=== PATIENT | female | born 1985 | race Caucasian/White ===

== ENCOUNTER → 2017-01-01 | Outpatient (REF) | payer OTHER | LOC: M SFHCWAGY 15:04 | PROVIDERS: ATTEND Nurse Practitioner Women's Health | DX: Z12.4 Encounter for screening for malignant neoplasm of cervix (principal) ==

== ENCOUNTER → 2017-11-19 | Outpatient (CLI) | payer OTHER ==
[2017-11-19 13:09] LABS: BASO # 0.1 10^3/uL (0.0-0.2); BASO % 0.7 % (0.0-1.0); EOS # 0.1 10^3/uL (0.0-0.50); EOS % 1.6 % (0.0-3.0); IMMATURE GRANULOCYTE % 0.2 % (0-0); LYMPH # 1.2 10^3/uL (1.5-4.5); LYMPH % 14.8 % (24.0-44.0); MEAN CORPUSCULAR HEMOGLOBIN 29.8 pg (27.0-33.0); MEAN CORPUSCULAR HGB CONC 34.1 g/dl (32.0-36.5); MEAN CORPUSCULAR VOLUME 87.2 fl (80.0-96.0); MONO # 0.7 10^3/uL (0.0-0.8); MONO % 8.1 % (0.0-5.0); NEUTROPHILS % 74.6 % (36.0-66.0); PLATELET COUNT, AUTOMATED 228 10^3/uL (150-450); RED CELL DISTRIBUTION WIDTH 12.3 % (11.5-14.5)
[2017-11-19 14:41] LABS: HBsAg Prenatal NEGATIVE (NEGATIVE)
== END ==
LOC: M ADAMS 08:00
DX: Z34.81 Encounter for supervision of other normal pregnancy, first trimester (principal); Z3A.13 13 weeks gestation of pregnancy
CPT/HCPCS: 86762

== ENCOUNTER → 2017-12-09 | Outpatient (CLI) | payer OTHER | LOC: M SMT 15:27 | DX: Z13.79 Encounter for other screening for genetic and chromosomal anomalies (principal) | CPT/HCPCS: 36415 ==

== ENCOUNTER → 2017-12-11 | Outpatient (CLI) | payer OTHER | LOC: M SMT 14:56 | DX: Z34.82 Encounter for supervision of other normal pregnancy, second trimester (principal); Z3A.18 18 weeks gestation of pregnancy ==

== ENCOUNTER → 2018-01-05 | Outpatient (CLI) | payer OTHER | LOC: M SMT 14:41 | DX: Z36.89 Encounter for other specified antenatal screening (principal); Z3A.20 20 weeks gestation of pregnancy | CPT/HCPCS: 76816 ==

== ENCOUNTER → 2018-02-09 | Outpatient (CLI) | payer OTHER ==
[2018-02-09 18:36] LABS: BASO # 0.1 10^3/uL (0.0-0.2); BASO % 0.7 % (0.0-1.0); EOS # 0.2 10^3/uL (0.0-0.50); HEMATOCRIT 34.2 % (36.0-47.0); HEMOGLOBIN 11.7 g/dl (12.0-16.0); IMMATURE GRANULOCYTE % 0.5 % (0-3.0); LYMPH # 2.3 10^3/uL (1.5-4.5); LYMPH % 19.7 % (24.0-44.0); MEAN CORPUSCULAR HEMOGLOBIN 29.6 pg (27.0-33.0); MEAN CORPUSCULAR HGB CONC 34.2 g/dl (32.0-36.5); MEAN CORPUSCULAR VOLUME 86.6 fl (80.0-96.0); MONO % 8.7 % (0.0-5.0); NEUTROPHILS # 7.8 10^3/uL (1.8-7.7); NEUTROPHILS % 68.4 % (36.0-66.0); PLATELET COUNT, AUTOMATED 333 10^3/uL (150-450); RED BLOOD COUNT 3.95 10^6/uL (4.00-5.40); RED CELL DISTRIBUTION WIDTH 12.4 % (11.5-14.5)
[2018-02-10 08:20] LABS: WHITE BLOOD COUNT 11.4 10^3/uL (4.0-10.0)
[2018-02-10 08:21] LABS: GLUCOSE CHALLENGE TEST 1 HOUR 87 MG/DL (LESS THAN 140)
[2018-02-10 08:49] LABS: TYPE AND SCREEN 1 1
== END ==
LOC: M LAB 15:44
DX: Z34.82 Encounter for supervision of other normal pregnancy, second trimester (principal)

== ENCOUNTER 2018-02-12 02:09 | Inpatient (IN) | payer OTHER ==
[2018-02-12] MEDS ORDERED: RHOGAM 300 MCG (1500 IU) INJ (J2790) IM (02:15)
[2018-02-12] MEDS: miSOPROStol 50 MCG 1/2 TAB (S0191) SL ×2 (03:06→07:06)
[2018-02-12] MEDS: zolPIDEM TARTRATE 5 MG TAB PO (03:06)
[2018-02-12 03:12] LABS: BASO # 0.1 10^3/uL (0.0-0.2); BASO % 0.9 % (0.0-1.0); EOS # 0.3 10^3/uL (0.0-0.50); EOS % 3.5 % (0.0-3.0); HEMATOCRIT 34.4 % (36.0-47.0); HEMOGLOBIN 11.7 g/dl (12.0-16.0); IMMATURE GRANULOCYTE % 0.4 % (0-3.0); LYMPH # 2.2 10^3/uL (1.5-4.5); LYMPH % 22.7 % (24.0-44.0); MEAN CORPUSCULAR HEMOGLOBIN 29.6 pg (27.0-33.0); MEAN CORPUSCULAR VOLUME 87.1 fl (80.0-96.0); MONO # 0.7 10^3/uL (0.0-0.8); MONO % 7.1 % (0.0-5.0); NEUTROPHILS # 6.4 10^3/uL (1.8-7.7); NEUTROPHILS % 65.4 % (36.0-66.0); PLATELET COUNT, AUTOMATED 325 10^3/uL (150-450); RED BLOOD COUNT 3.95 10^6/uL (4.00-5.40); RED CELL DISTRIBUTION WIDTH 12.3 % (11.5-14.5); WHITE BLOOD COUNT 9.8 10^3/uL (4.0-10.0)
[2018-02-12 03:22] LABS: PROTHROMBIN TIME 12.2 SECONDS (12.4-14.5)
[2018-02-12 03:23] LABS: PARTIAL THROMBOPLASTIN TIME 37.4 SECONDS (26.8-37.9)
[2018-02-12 03:42] LABS: THYROXINE (T4) 11.6 UG/DL (4.5-12.0)
[2018-02-12] MEDS: FAMOTIDINE 20 MG TAB PO (07:58)
[2018-02-12] MEDS ORDERED: miSOPROStol 50 MCG 1/2 TAB (S0191) PV ×2 (10:30→14:30)
[2018-02-12] MEDS: miSOPROStol 100 MCG TAB (S0191) PV (11:09)
[2018-02-12] MEDS: miSOPROStol 200 MCG TAB (S0191) PV (14:48)
[2018-02-12] MEDS ORDERED: miSOPROStol 200 MCG TAB (S0191) PV (18:45)
[2018-02-12] MEDS: miSOPROStol 200 MCG TAB (S0191) SL ×2 (18:54→23:34)
[2018-02-12] MEDS: PROMETHAZINE INJ 25 MG/ML VIAL (J2550) IV (19:55)
[2018-02-12] MEDS: BUTORPHANOL 2 MG/ML INJ (J0595) IV (19:57)
[2018-02-13] MEDS: LR 1,000 ML IV (04:12)
[2018-02-13] MEDS: OXYTOCIN DRIP 30 UNITS in APPROPRIATE DILUENT 1 EA IV ×2 (04:12→13:40)
[2018-02-13] MEDS: LORazepam 1 MG TAB PO (04:31)
[2018-02-13] MEDS ORDERED: FENTANYL 2MCG/ML ROPIVACAINE 0.2% IN 0.9% NACL 200ML IVBAG As Ordered (07:24)
[2018-02-13 07:27] LABS: HEMATOCRIT 32.6 % (36.0-47.0); HEMOGLOBIN 11.4 g/dl (12.0-16.0); MEAN CORPUSCULAR HEMOGLOBIN 30.2 pg (27.0-33.0); MEAN CORPUSCULAR VOLUME 86.5 fl (80.0-96.0); PLATELET COUNT, AUTOMATED 282 10^3/uL (150-450); RED BLOOD COUNT 3.77 10^6/uL (4.00-5.40); RED CELL DISTRIBUTION WIDTH 12.3 % (11.5-14.5); WHITE BLOOD COUNT 16.5 10^3/uL (4.0-10.0)
[2018-02-13] MEDS ORDERED: ONDANSETRON 4MG/2ML VIAL (J2405) IV (08:30)
[2018-02-13] MEDS ORDERED: EPIDURAL COMMENT XX (08:30)
[2018-02-13] MEDS ORDERED: EPIDURAL/PCA KEYS XX (08:30)
[2018-02-13] MEDS ORDERED: NALOXONE INJ 0.4 MG/1 ML VIAL (J2310) IV (08:30)
[2018-02-13] MEDS ORDERED: FENTANYL/ROPIVACAINE/NACL BAG 200 ML EPIDURAL (08:30)
[2018-02-13] MEDS ORDERED: LACTATED RINGER'S 1000 ML IV (08:30)
[2018-02-13] MEDS ORDERED: ePHEDrine SULFATE 25 MG/5 ML(5MG/ML) SYRINGE IV (08:30)
[2018-02-13] MEDS ORDERED: diphenhydrAMINE INJ 50MG/ML VIAL (J1200) IV (08:30)
[2018-02-13] MEDS ORDERED: REFRIGERATOR IV KEYS XX (08:30)
[2018-02-13] MEDS ORDERED: DIBUCAINE 1% OINTMENT 30GM TOP (13:30)
[2018-02-13] MEDS ORDERED: DOCUSATE SODIUM 100 MG CAP PO (13:30)
[2018-02-13] MEDS ORDERED: IBUPROFEN 800 MG TAB PO (13:30)
[2018-02-13] MEDS ORDERED: MEASLES,MUMPS,RUBELLA VACCINE INJ (MMR-II) (90707) SC (13:30)
[2018-02-13] MEDS ORDERED: ANUSOL HC CREAM 30GM TOP (13:30)
[2018-02-13] MEDS ORDERED: METHYLERGONOVINE MALEATE 0.2 MG TAB PO (13:30)
[2018-02-13] MEDS ORDERED: MOM 30ML SUSPENSION UDC PO (13:30)
[2018-02-13 15:47] LABS: FETAL SCREEN PROF. 1 1
[2018-02-13] MEDS: RHOGAM 300 MCG (1500 IU) INJ (J2790) IM (16:10)
[2018-02-13] MEDS: ACETAMINOPHEN 500 MG TAB PO (18:27)
[2018-02-14 08:06] LABS: ANTI PARVO VIRUS LEVEL IGG 0.2 index (0.0-0.8); ANTI PARVO VIRUS LEVEL IgM 0.2 index (0.0-0.8); BETA-2 GLYCOPROTEIN I ABY IGA <9 (0-25); BETA-2 GLYCOPROTEIN I ABY IGG <9 (0-20); BETA-2 GLYCOPROTEIN I ABY IGM 13 (0-32); CARDIOLIPIN IGA ANTIBODY <9 APL U/mL (0-11); CARDIOLIPIN IGG ANTIBODY <9 GPL U/mL (0-14); CARDIOLIPIN IGM ANTIBODY 47 MPL U/mL (0-12)
[2018-02-14] MEDS ORDERED: PRENATAL VITAMINS CHEWABLE TABLET PO (09:00)
== END 2018-02-13 19:10 | disposition home or self-care (01) | DRG 775 ==
LOC: M LDI 02:09
PROC: 3E033VJ Introduction of Other Hormone into Peripheral Vein, Percutaneous Approach (ICD-10-PCS; 2018-02-12)
PROC: 10E0XZZ Delivery of Products of Conception, External Approach (ICD-10-PCS; principal; 2018-02-13)
DX: O36.4XX0 Maternal care for intrauterine death, not applicable or unspecified (principal); Z3A.27 27 weeks gestation of pregnancy; Z37.1 Single stillbirth

== ENCOUNTER → 2018-03-27 | Outpatient (REF) | payer OTHER ==
[2018-03-31 09:03] LABS: DRVV SCREEN 41.1 SEC
[2018-04-02 00:07] LABS: ANTI DOUBLE STRAND-DNA AB 1 IU/mL (0-9); ANTI THROMBIN 3 ANTIGEN IMMUNO 124 % (72-124); ANTI THROMBIN 3 FUNCT ACTIVITY 106 % (75-135); CARDIOLIPIN IGA ANTIBODY <9 APL U/mL (0-11); CARDIOLIPIN IGG ANTIBODY <9 GPL U/mL (0-14); CARDIOLIPIN IGM ANTIBODY 34 MPL U/mL (0-12); HOMOCYST(E)INE SERUM 10.4 umol/L (0.0-15.0); PROTEIN C ANTIGEN 105 % (60-150); PROTEIN C FUNCTIONAL ACTIVITY 157 % (73-180); PROTEIN S FUNCTIONAL ACTIVITY 54 % (63-140); SSA SJOGRENS A <0.2 AI (0.0-0.9); SSB SJOGRENS B <0.2 AI (0.0-0.9)
== END ==
LOC: M LABDRWAD 19:20
DX: Z37.1 Single stillbirth (principal)

== ENCOUNTER → 2018-06-30 | Outpatient (REF) | payer OTHER ==
[2018-07-03 14:49] LABS: ANTI DOUBLE STRAND-DNA AB 1 IU/mL (0-9); ANTI THROMBIN 3 ANTIGEN IMMUNO 124 % (72-124); ANTI THROMBIN 3 FUNCT ACTIVITY 104 % (75-135); CARDIOLIPIN IGA ANTIBODY <9 APL U/mL (0-11); CARDIOLIPIN IGG ANTIBODY <9 GPL U/mL (0-14); CARDIOLIPIN IGM ANTIBODY 27 MPL U/mL (0-12); PROTEIN C FUNCTIONAL ACTIVITY 165 % (73-180); PROTEIN S FUNCTIONAL ACTIVITY 64 % (63-140); SSA SJOGRENS A <0.2 AI (0.0-0.9); SSB SJOGRENS B <0.2 AI (0.0-0.9)
[2018-07-10 14:40] LABS: DRVV SCREEN 54.3 SEC
[2018-07-10 14:43] LABS: HEXAGONAL PHASE PHOSPHOLIPID SEE SEPARATE REPORT
== END ==
LOC: M LAB REF 19:43
DX: O36.4XX0 Maternal care for intrauterine death, not applicable or unspecified (principal); Z3A.00 Weeks of gestation of pregnancy not specified
CPT/HCPCS: 86147

== ENCOUNTER → 2018-09-02 | Outpatient (REF) | payer OTHER ==
[2018-09-02 17:26] LABS: BASO # 0.1 10^3/uL (0.0-0.2); BASO % 0.6 % (0.0-1.0); EOS # 0.1 10^3/uL (0.0-0.50); EOS % 1.4 % (0.0-3.0); HEMATOCRIT 39.1 % (36.0-47.0); IMMATURE GRANULOCYTE % 0.4 % (0-3.0); LYMPH # 2.1 10^3/uL (1.5-4.5); LYMPH % 22.2 % (24.0-44.0); MEAN CORPUSCULAR HEMOGLOBIN 29.6 pg (27.0-33.0); MEAN CORPUSCULAR HGB CONC 33.2 g/dl (32.0-36.5); MEAN CORPUSCULAR VOLUME 89.1 fl (80.0-96.0); MONO # 0.7 10^3/uL (0.0-0.8); NEUTROPHILS # 6.6 10^3/uL (1.8-7.7); NEUTROPHILS % 68.4 % (36.0-66.0); PLATELET COUNT, AUTOMATED 329 10^3/uL (150-450); RED BLOOD COUNT 4.39 10^6/uL (4.00-5.40); RED CELL DISTRIBUTION WIDTH 12.4 % (11.5-14.5); WHITE BLOOD COUNT 9.6 10^3/uL (4.0-10.0)
[2018-09-02 17:29] LABS: ALBUMIN 4.1 GM/DL (3.2-5.2); ALBUMIN/GLOBULIN RATIO 1.32 (1.00-1.93); ALKALINE PHOSPHATASE 89 U/L (45-117); ALT/SGPT 21 U/L (12-78); ANION GAP 7 MEQ/L (8-16); APPEARANCE, URINE HAZY (CLEAR); AST/SGOT 14 U/L (7-37); BACTERIA, URINE AUTO 2+ (NEGATIVE); BILIRUBIN, URINE AUTO NEGATIVE (NEGATIVE); BILIRUBIN,TOTAL 0.5 MG/DL (0.2-1.0); BLOOD UREA NITROGEN 12 MG/DL (7-18); BLOOD, URINE BLOOD NEGATIVE (NEGATIVE); C REACTIVE PROTEIN QUANTITATIV 1.04 MG/DL (0.00-0.30); CALCIUM LEVEL 9.5 MG/DL (8.5-10.1); CARBON DIOXIDE LEVEL 28 MEQ/L (21-32); CHLORIDE LEVEL 103 MEQ/L (98-107); COLOR, URINE STRAW (YELLOW); COMPLEMENT C3 126 MG/DL (90-180); CREATININE FOR GFR 0.73 MG/DL (0.55-1.30); GLOMERULAR FILTRATION RATE > 60.0 (>60); GLUCOSE, FASTING 74 MG/DL (70-100); GLUCOSE, URINE (UA) AUTO NEGATIVE (NEGATIVE); KETONE, URINE AUTO NEGATIVE (NEGATIVE); LEUKOCYTE ESTERASE, URINE AUTO 1+ (NEGATIVE); NITRITE, URINE AUTO NEGATIVE (NEGATIVE); POTASSIUM SERUM 4.1 MEQ/L (3.5-5.1); PROTEIN, URINE AUTO NEGATIVE (NEGATIVE); RBC, URINE AUTO 1 /HPF (0-3); SODIUM LEVEL 138 MEQ/L (136-145); SPECIFIC GRAVITY URINE AUTO 1.004 (1.002-1.035); SQUAMOUS EPITHELIAL CELL UR AU 2 /HPF (0-6); TOTAL PROTEIN 7.2 GM/DL (6.4-8.2); UROBILINOGEN, URINE AUTO 0.2 mg/dL (0.0-2.0); WBC, URINE AUTO 3 /HPF (0-3)
[2018-09-02 18:09] LABS: ERYTHROCYTE SEDIMENTATION RATE 24 mm/hr (0-20)
[2018-09-02 18:53] LABS: CREATININE,RANDOM URINE 31.2 MG/DL; TOTAL PROTEIN,RANDOM URINE < 5.0 MG/DL (0.0-12.0)
[2018-09-07 00:07] LABS: ANA (HEP2) Negative (.); ANTI DOUBLE STRAND-DNA AB 1 IU/mL (0-9); BETA-2 GLYCOPROTEIN I ABY IGA <9 (0-25); BETA-2 GLYCOPROTEIN I ABY IGG <9 (0-20); BETA-2 GLYCOPROTEIN I ABY IGM 14 (0-32); CARDIOLIPIN IGA ANTIBODY <9 APL U/mL (0-11); CARDIOLIPIN IGG ANTIBODY <9 GPL U/mL (0-14); CARDIOLIPIN IGM ANTIBODY 43 MPL U/mL (0-12); RNP ANTIBODY < 0.2 AI (0.0-0.9); SMITHS ANTIBODY < 0.2 AI (0.0-0.9); SSA SJOGRENS A <0.2 AI (0.0-0.9); SSB SJOGRENS B <0.2 AI (0.0-0.9)
[2018-09-08 10:26] LABS: DRVV SCREEN 47.7 SEC
[2018-09-08 10:32] LABS: PTT LUPUS TYPE ANTICOAG SCREEN 1.1 (0-1.2)
== END ==
LOC: M SFHCLERA 11:59
DX: R76.0 Raised antibody titer (principal)
CPT/HCPCS: 80053

== ENCOUNTER → 2018-10-30 | Outpatient (CLI) | payer OTHER ==
[2018-10-30 20:01] LABS: FERRITIN 51 NG/ML (8-252); FREE T4 0.93 NG/DL (0.76-1.46); IRON (FE) 56 UG/DL (50-170); PERCENT SATURATION 18.9 % (13.2-45.0); TOTAL IRON BINDING CAPACITY 296 UG/DL (250-450)
== END ==
LOC: M ADAMS 16:43
DX: R53.83 Other fatigue (principal)
CPT/HCPCS: 83550

== ENCOUNTER → 2018-11-30 | Outpatient (REF) | payer OTHER ==
[~2018-11-30] MED LIST: CLAR10CA3 PO; RANI75TA15 PO
[2018-12-02 14:37] LABS: HPV HYBRID CAPTURE II Negative (Negative)
== END ==
LOC: M SFHCWAGY 13:40
PROVIDERS: ATTEND Nurse Practitioner Women's Health
DX: N93.0 Postcoital and contact bleeding (principal); Z12.4 Encounter for screening for malignant neoplasm of cervix
CPT/HCPCS: 87624; G0123

== ENCOUNTER → 2018-12-01 | Outpatient (CLI) | payer OTHER ==
--- NOTE | 2018-12-02 05:33 | REP ---
Clinical: Postcoital bleeding . Technique: Transabdominal pelvic ultrasound followed by transvaginal examination for better evaluation of the endometrium and adnexa. Findings: Bladder is unremarkable and measures 15.6 x 8.9 x 11.3 cm . Normal anteverted uterus measures 7.4 x 2.8 x 6.0 cm . The endometrial complex measures 10.9 mm thickness. 5 mm endometrial polyp cannot definitively be excluded. Small subcentimeter Nabothian cysts noted. Bilateral ovaries are normal in appearance. Right ovary measures 3.7 x 2.8 x 3.9 cm ; Left ovary measures 4.1 x 1.7 x 2.8 cm. No pelvic fluid or adnexal mass lesion . Impression: 1. Cannot exclude 5 mm endometrial polyp. 2. Otherwise normal pelvic ultrasound.
== END ==
LOC: M WHC 14:53
PROVIDERS: ATTEND Nurse Practitioner Women's Health
DX: R93.5 Abnormal findings on diagnostic imaging of other abdominal regions, including retroperitoneum (principal)

== ENCOUNTER → 2019-01-08 | Outpatient (CLI) | payer OTHER ==
[2019-01-08 13:51] LABS: FREE T4 0.97 NG/DL (0.76-1.46); THYROID STIMULATING HORMONE 1.73 uIU/ML (0.358-3.740)
[2019-01-08 13:52] LABS: FOLLICLE STIMULATING HORMONE 5.7 mIU/mL; LUTEINIZING HORMONE 2.3 mIU/mL; PROLACTIN 3.6 NG/ML
[2019-01-10 00:06] LABS: TESTOSTERONE FREE (DIRECT) 0.4 pg/mL (0.0-4.2)
== END ==
LOC: M SMT 10:57
PROVIDERS: ATTEND Obstetrics & Gynecology
DX: N92.0 Excessive and frequent menstruation with regular cycle (principal)

== ENCOUNTER 2019-01-25 10:13 | Emergency (ER) | payer OTHER ==
[~2019-01-25] VITALS: Ht 157.5 cm; Wt 84.1 kg
[2019-01-25] MEDS ORDERED: OMEP20CA3 (10:23)
[2019-01-25] MEDS ORDERED: CETI10TA PO (10:23)
[2019-01-25] MEDS ORDERED: baby aspirin (10:23)
[2019-01-25] MEDS ORDERED: NS 1,000 ML IV ONE (11:00)
[2019-01-25 11:09] LABS: BASO # 0.1 10^3/uL (0.0-0.2); BASO % 0.5 % (0.0-1.0); EOS # 0.1 10^3/uL (0.0-0.50); EOS % 0.5 % (0.0-3.0); HEMATOCRIT 38.1 % (36.0-47.0); HEMOGLOBIN 12.5 g/dl (12.0-15.5); LYMPH # 1.6 10^3/uL (1.5-4.5); LYMPH % 15.1 % (24.0-44.0); MEAN CORPUSCULAR HEMOGLOBIN 28.8 pg (27.0-33.0); MEAN CORPUSCULAR HGB CONC 32.8 g/dl (32.0-36.5); MEAN CORPUSCULAR VOLUME 87.8 fl (80.0-96.0); MONO # 0.7 10^3/uL (0.0-0.8); NEUTROPHILS # 8.4 10^3/uL (1.8-7.7); NEUTROPHILS % 77.5 % (36.0-66.0); PLATELET COUNT, AUTOMATED 274 10^3/uL (150-450); RED BLOOD COUNT 4.34 10^6/uL (4.00-5.40); WHITE BLOOD COUNT 10.8 10^3/uL (4.0-10.0)
[2019-01-25 11:19] LABS: INR 0.95; PROTHROMBIN TIME 12.8 SECONDS (12.1-14.4)
[2019-01-25 11:20] LABS: PARTIAL THROMBOPLASTIN TIME 40.5 SECONDS (25.4-37.6)
[2019-01-25 11:46] LABS: ALT/SGPT 20 U/L (12-78); AMYLASE 43 U/L (25-115); BILIRUBIN,DIRECT 0.1 MG/DL (0.0-0.2); BILIRUBIN,TOTAL 0.5 MG/DL (0.2-1.0); BLOOD UREA NITROGEN 9 MG/DL (7-18); CALCIUM LEVEL 8.3 MG/DL (8.5-10.1); CARBON DIOXIDE LEVEL 26 MEQ/L (21-32); CHLORIDE LEVEL 106 MEQ/L (98-107); CREATININE FOR GFR 0.73 MG/DL (0.55-1.30); GLOMERULAR FILTRATION RATE > 60.0 (>60); GLUCOSE, FASTING 87 MG/DL (70-100); POTASSIUM SERUM 4.3 MEQ/L (3.5-5.1); SODIUM LEVEL 139 MEQ/L (136-145); TOTAL PROTEIN 6.7 GM/DL (6.4-8.2)
[2019-01-25 11:47] LABS: ALBUMIN 3.6 GM/DL (3.2-5.2); HCG, SERUM QUANTITATIVE < 1.0 MIU/ML; LIPASE 135 U/L (73-393)
[2019-01-25] MEDS ORDERED: ISOVUE-370 76% 100ML VIAL (Q9967) As Ordered ONE (12:00)
--- NOTE | 2019-01-25 12:59 | REP ---
CT ABDOMEN/PELVIS WITH IV CONTRAST: TECHNIQUE: Axial contrast enhanced images from the lung bases to the pubic symphysis using 100 mL Isovue 370 intravenous contrast material with multiplanar reformations. Visualized lung bases demonstrate no infiltrate. The liver demonstrates a 2 cm nodule in the right lobe superiorly, which appears some peripheral nodular enhancement, most consistent with a hemangioma. Gallbladder, spleen, adrenals, pancreas, and kidneys appear unremarkable. No hydronephrosis is seen bilaterally. There is no abdominal aortic aneurysm. There is no adenopathy. There is no free air or free fluid. No bowel wall thickening is seen. There is no evidence of appendicitis. No pelvic mass is seen. The urinary bladder is unremarkable. IMPRESSION: Nodule right lobe of liver appears to demonstrate peripheral nodular enhancement most consistent with hemangioma. No acute abnormalities. No appendicitis or bowel inflammation. No free air or free fluid. Electronically Signed by Tk Cole MD 01/25/2019 05:41 P
[2019-01-25 13:41] VITALS: BP 108/65
== END 2019-01-25 13:43 | disposition home or self-care (01) ==
LOC: M ED 10:13
DX: K52.9 Noninfective gastroenteritis and colitis, unspecified (principal); K76.89 Other specified diseases of liver; K21.9 Gastro-esophageal reflux disease without esophagitis; Z88.0 Allergy status to penicillin; Z79.899 Other long term (current) drug therapy; Z79.82 Long term (current) use of aspirin
CPT/HCPCS: 74177; 80048; 80076; 81001; 82150; 83605; 83690; 84702; 85025; 85610; 85730; 87086; 96360; 96361; 99284; Q9967

== ENCOUNTER → 2019-01-26 | Outpatient (REF) | payer OTHER ==
[~2019-01-26] MED LIST changes: +CETI10TA PO; +OMEP20CA3; +baby aspirin
== END ==
LOC: M LABDRWAD 19:12
PROVIDERS: ATTEND Obstetrics & Gynecology
DX: N92.0 Excessive and frequent menstruation with regular cycle (principal)

== ENCOUNTER → 2019-01-27 | Outpatient (REF) | payer OTHER | LOC: M LAB REF 16:22 | PROVIDERS: ATTEND Emergency Medicine | DX: R19.7 Diarrhea, unspecified (principal) ==

== ENCOUNTER → 2019-08-24 | Outpatient (CLI) | payer OTHER ==
[~2019-08-24] MED LIST changes: +ASPI81CH33 PO; +FLON1SPR; +MULTCAP PO; +OMEP10CASR PO; -OMEP20CA3; +OMEP20CA4
== END ==
LOC: M SMT 13:11
PROVIDERS: ATTEND Obstetrics & Gynecology
DX: Z32.02 Encounter for pregnancy test, result negative (principal)

== ENCOUNTER → 2019-08-26 | Outpatient (CLI) | payer OTHER ==
[~2019-08-26] MED LIST changes: +OMEP1CAP73; -OMEP20CA4
== END ==
LOC: M SMT 13:19
PROVIDERS: ATTEND Obstetrics & Gynecology
DX: Z32.01 Encounter for pregnancy test, result positive (principal)

== ENCOUNTER → 2019-10-18 | Outpatient (CLI) | payer OTHER ==
[~2019-10-18] MED LIST changes: -OMEP1CAP73; +OMEP20CA4
[2019-10-18 16:19] LABS: BASO % 0.4 % (0.0-1.0); EOS # 0.1 10^3/uL (0.0-0.5); EOS % 1.1 % (0.0-3.0); HEMATOCRIT 34.5 % (36.0-47.0); HEMOGLOBIN 11.5 g/dl (12.0-15.5); MEAN CORPUSCULAR HEMOGLOBIN 30.3 pg (27.0-33.0); MEAN CORPUSCULAR HGB CONC 33.3 g/dl (32.0-36.5); MEAN CORPUSCULAR VOLUME 90.8 fl (80.0-96.0); MONO # 0.8 10^3/uL (0.0-0.8); MONO % 7.4 % (0.0-5.0); NEUTROPHILS # 7.5 10^3/uL (1.5-8.5); NEUTROPHILS % 71.4 % (36.0-66.0); PLATELET COUNT, AUTOMATED 298 10^3/uL (150-450); WHITE BLOOD COUNT 10.5 10^3/uL (4.0-10.0)
[2019-10-18 17:54] LABS: CHLAMYDIA DNA AMPLIFICATION NEGATIVE (NEGATIVE); GC DNA AMPLIFICATION NEGATIVE (NEGATIVE)
[2019-10-19 12:31] LABS: HIV 1&2 SCREEN CENTAUR NEGATIVE (NEGATIVE); RUBELLA IgG QUALITATIVE IMMUNE (IMMUNE)
[2019-10-20 10:22] LABS: HEPATITIS C VIRUS ABY INDEX 0.1 INDEX (<0.8)
== END ==
LOC: M LABDRWAD 15:00
PROVIDERS: ATTEND Advanced Practice Midwife
DX: Z34.81 Encounter for supervision of other normal pregnancy, first trimester (principal)

== ENCOUNTER → 2019-11-29 | Outpatient (CLI) | payer OTHER ==
[~2019-11-29] MED LIST changes: +OMEP-172; -OMEP20CA4
--- NOTE | 2019-11-29 19:29 | REP ---
Clinical: Anatomical evaluation. Comparison: None . Findings: Examination demonstrates a single live intrauterine in cephalic presentation. motion is identified by technologist. Placenta is noted posterior and grade zero without evidence for placenta previa or abruption. Amniotic fluid volume is normal. Cervix measures 3.1 cm in length and appears closed. No evidence for nuchal cord. Gestational age by LMP 18 weeks 5 days with ZHEN 04/26/2020 . Gestational age by current measurements 18 weeks 2 days with ZHEN 04/29/2020 . FHR equals 150 beats per minute. BPD 4.3 cm 18 weeks 6 days HC 15.7 cm 18 weeks 4 days AC 12.5 cm 18 weeks 1 day FL 2.7 cm 18 weeks 2 days HL 2.5 cm 17 weeks 6 days HC/AC ratio 1.26 Estimated weight 232 grams ( 31st percentile). Anatomical assessment demonstrates normal structures including cranium, choroid plexus, cavum, cerebellum/posterior fossa, lungs, diaphragm, stomach, cord insertion/three-vessel cord, kidneys/bladder, spine, and extremities. Impression: Single live intrauterine in cephalic presentation demonstrating appropriate interval growth. 2. Limited evaluation of the facial features and heart/ventricular outflow tracts. Remainder of the anatomical assessment is complete and normal. Electronically Signed by Isaias Ramos MD 11/29/2019 07:21 P
== END ==
LOC: M RAD 14:05
PROVIDERS: ATTEND Advanced Practice Midwife
DX: Z34.82 Encounter for supervision of other normal pregnancy, second trimester (principal)

== ENCOUNTER → 2019-12-20 | Outpatient (CLI) | payer OTHER ==
[~2019-12-20] MED LIST changes: -OMEP-172; +OMEP1CAP73
--- NOTE | 2019-12-21 01:24 | REP ---
Clinical: Anatomical evaluation. Comparison: 11/29/2019 . Findings: Examination demonstrates a single live intrauterine in cephalic presentation. motion is identified by technologist. Placenta is noted posterior and grade I without evidence for placenta previa or abruption. Amniotic fluid volume is normal. Cervix measures 3.4 cm in length and appears closed. No evidence for nuchal cord. Gestational age by LMP 21 weeks 5 days with Z[facility]EN 04/26/2020 . Gestational age by current measurements 21 weeks 0 days with ZHEN 05/01/2020 . FHR equals 143 beats per minute. Estimated weight 421 grams ( 36 percentile). Anatomical assessment demonstrates normal structures including cranium, choroid plexus, cavum, cerebellum/posterior fossa, facial features, lungs, four-chamber heart/ventricular outflow tracts, diaphragm, stomach, cord insertion/three-vessel cord, kidneys/bladder, spine, and extremities. Impression: Single live intrauterine in cephalic presentation demonstrating appropriate interval growth. Anatomical assessment is complete and normal. No gross abnormalities are identified.
== END ==
LOC: M WHC 14:53
PROVIDERS: ATTEND Advanced Practice Midwife
DX: Z34.82 Encounter for supervision of other normal pregnancy, second trimester (principal)

== ENCOUNTER → 2020-01-19 | Outpatient (CLI) | payer OTHER ==
[2020-01-19 18:38] LABS: HEMOGLOBIN 10.4 g/dl (12.0-15.5); MEAN CORPUSCULAR HEMOGLOBIN 31.1 pg (27.0-33.0); MEAN CORPUSCULAR HGB CONC 33.5 g/dl (32.0-36.5); MEAN CORPUSCULAR VOLUME 92.8 fl (80.0-96.0); PLATELET COUNT, AUTOMATED 317 10^3/uL (150-450); RED BLOOD COUNT 3.34 10^6/uL (4.00-5.40); WHITE BLOOD COUNT 11.5 10^3/uL (4.0-10.0)
== END ==
LOC: M PLALAB 14:47
PROVIDERS: ATTEND Advanced Practice Midwife
DX: Z34.92 Encounter for supervision of normal pregnancy, unspecified, second trimester (principal)
CPT/HCPCS: 36415; 82950; 85027; 86850; 86900; 86901; J2790

== ENCOUNTER → 2020-02-01 | Outpatient (CLI) | payer OTHER ==
--- NOTE | 2020-02-02 08:31 | REP ---
Clinical: Anatomical evaluation. Comparison: 12/20/2019 . Findings: Examination demonstrates a single live intrauterine in cephalic presentation. motion is identified by technologist. Placenta is noted posterior/fundal and grade zero without evidence for placenta previa or abruption. Amniotic fluid volume is normal. Cervix measures 3.1 cm in length and appears closed. No evidence for nuchal cord. Gestational age by LMP 27 weeks 6 days with ZHEN 04/26/2020 . Gestational age by current measurements 27 weeks 2 days with ZHEN 04/30/2020 . FHR equals 160 beats per minute. Estimated weight 1103 grams ( 37 percentile). Amniotic fluid index: 18.2 cm Anatomical assessment demonstrates normal structures including four-chamber heart, stomach, cord insertion/three-vessel cord, kidneys and bladder. Impression: Single live intrauterine in cephalic presentation demonstrating appropriate interval growth. No gross abnormalities are identified.
== END ==
LOC: M WHC 13:15
PROVIDERS: ATTEND Obstetrics & Gynecology
DX: O09.92 Supervision of high risk pregnancy, unspecified, second trimester (principal)

== ENCOUNTER → 2020-02-25 | Outpatient (CLI) | payer OTHER | LOC: M WHC 13:47 | PROVIDERS: ATTEND Obstetrics & Gynecology | DX: O09.292 Supervision of pregnancy with other poor reproductive or obstetric history, second trimester (principal); Z3A.00 Weeks of gestation of pregnancy not specified ==

== ENCOUNTER → 2020-03-06 | Outpatient (CLI) | payer OTHER ==
--- NOTE | 2020-03-07 04:38 | REP ---
Clinical: well-being. Biophysical profile. Comparison: 02/01/2020 . Findings: Examination demonstrates a single live intrauterine in cephalic presentation. motion is identified by technologist. Placenta is noted posterior and grade I without evidence for placenta previa or abruption. Amniotic fluid volume is normal. Cervix measures 3.5 cm in length and appears closed. No evidence for nuchal cord. Gestational age by LMP 32 weeks 5 days with ZHEN 04/26/2020 . FHR equals 140 beats per minute. Biophysical profile score: 8/8 Amniotic fluid index: 14.7 cm Umbilical cord SD ratio: 2.85 Impression: Single live advanced gestation in cephalic presentation. Biophysical profile score and amniotic fluid volume are normal.
== END ==
LOC: M WHC 13:11
PROVIDERS: ATTEND Obstetrics & Gynecology
DX: O09.292 Supervision of pregnancy with other poor reproductive or obstetric history, second trimester (principal); Z3A.32 32 weeks gestation of pregnancy

== ENCOUNTER → 2020-03-13 | Outpatient (CLI) | payer OTHER ==
--- NOTE | 2020-03-14 03:43 | REP ---
Clinical: Growth evaluation. Comparison: 03/06/2020 . Findings: Examination demonstrates a single live intrauterine in cephalic presentation. motion is identified by technologist. Placenta is noted anterior/left lateral and grade I without evidence for placenta previa or abruption. Amniotic fluid volume is normal. Cervix measures 3.1 cm in length and appears closed. No evidence for nuchal cord. Gestational age by LMP 33 weeks 5 days with ZHEN 04/26/2020 . Gestational age by current measurements 32 weeks 5 days with ZHEN 05/03/2020 . FHR equals 133 beats per minute. Estimated weight 2100 grams ( 33rd percentile). Biophysical profile score: 8/8 Amniotic fluid index: 14.4 cm (8.2 - 24.7) Impression: 1. Single live advanced gestation in cephalic presentation demonstrating appropriate estimated weight and growth. 2. Biophysical profile score and amniotic fluid volume are normal.
== END ==
LOC: M WHC 14:33
PROVIDERS: ATTEND Obstetrics & Gynecology
DX: O09.292 Supervision of pregnancy with other poor reproductive or obstetric history, second trimester (principal); Z3A.32 32 weeks gestation of pregnancy

== ENCOUNTER → 2020-03-27 | Outpatient (CLI) | payer OTHER | LOC: M WHC 15:27 | PROVIDERS: ATTEND Obstetrics & Gynecology | DX: O09.292 Supervision of pregnancy with other poor reproductive or obstetric history, second trimester (principal); Z53.9 Procedure and treatment not carried out, unspecified reason ==

== ENCOUNTER → 2020-03-28 | Outpatient (CLI) | payer OTHER | LOC: M WHC 15:17 | PROVIDERS: ATTEND Obstetrics & Gynecology | DX: O99.113 Other diseases of the blood and blood-forming organs and certain disorders involving the immune mechanism complicating pregnancy, third trimester (principal) ==

== ENCOUNTER → 2020-03-29 | Outpatient (REF) | payer OTHER | LOC: M SFHCWAGY 16:28 | PROVIDERS: ATTEND Advanced Practice Midwife | DX: O26.899 Other specified pregnancy related conditions, unspecified trimester (principal) ==

== ENCOUNTER → 2020-04-03 | Outpatient (CLI) | payer OTHER ==
--- NOTE | 2020-04-03 19:47 | REP ---
Clinical: well-being Comparison: 03/13/2020 . Findings: Examination demonstrates a single live intrauterine in cephalic presentation. motion is identified by technologist. Placenta is noted posterior/fundal and grade I without evidence for placenta previa or abruption. Amniotic fluid volume is normal. Cervix measures 3.5 cm in length and appears closed. No evidence for nuchal cord. Gestational age by LMP 36 weeks 5 days with ZHEN 04/26/2020 . Gestational age by current measurements 35 weeks 6 days with ZHEN 05/03/2020 . FHR equals 125 beats per minute. Amniotic fluid index: 12.4 cm Biophysical profile score: 8/8 Estimated weight by current biometrical measurements 2906 grams (46 percentile). Impression: Single live advanced gestation in cephalic presentation demonstrating appropriate interval growth. Biophysical profile score and amniotic fluid volume are normal.
== END ==
LOC: M WHC 14:26
PROVIDERS: ATTEND Obstetrics & Gynecology
DX: O99.113 Other diseases of the blood and blood-forming organs and certain disorders involving the immune mechanism complicating pregnancy, third trimester (principal)

== ENCOUNTER → 2020-04-04 | Outpatient (REF) | payer OTHER ==
[~2020-04-04] MED LIST changes: +DOCU100C16 PO; +ENOX40IN3 SC; +FLUT15.820 NARES; +HEPA10IN10 SQ; +IBUP80TA PO; +PERCOCET PO
== END ==
LOC: M SFHCWAGY 18:01
PROVIDERS: ATTEND Obstetrics & Gynecology
DX: O99.113 Other diseases of the blood and blood-forming organs and certain disorders involving the immune mechanism complicating pregnancy, third trimester (principal)

== ENCOUNTER 2020-04-18 23:39 | Inpatient (IN) | payer OTHER ==
[~2020-04-18] VITALS: Ht 160 cm; Wt 100.0 kg
[~2020-04-18 23:39] MED LIST changes: -DOCU100C16 PO; -ENOX40IN3 SC; -FLUT15.820 NARES; -HEPA10IN10 SQ; -IBUP80TA PO; -PERCOCET PO
[2020-04-18 23:58] VITALS: BP 118/70
[2020-04-19] VITALS (72 sets, daily range): BP systolic 89–119; BP diastolic 43–75
[2020-04-19 01:15] LABS: HEMOGLOBIN 10.1 g/dl (12.0-15.5); MEAN CORPUSCULAR HEMOGLOBIN 29.5 pg (27.0-33.0); MEAN CORPUSCULAR HGB CONC 33.7 g/dl (32.0-36.5); MEAN CORPUSCULAR VOLUME 87.7 fl (80.0-96.0); PLATELET COUNT, AUTOMATED 291 10^3/uL (150-450); RED BLOOD COUNT 3.42 10^6/uL (4.00-5.40); WHITE BLOOD COUNT 9.8 10^3/uL (4.0-10.0)
[2020-04-19] MEDS: miSOPROStol 50 MCG 1/2 TAB (S0191) PO SCH ×3 (01:25→09:00)
[2020-04-19] MEDS ORDERED: HEPA10IN10 SQ (08:32)
[2020-04-19] MEDS ORDERED: OMEPRAZOLE 20 MG CAP PO SCH (09:00)
[2020-04-19] MEDS ORDERED: OXYTOCIN DRIP 30 UNITS in IV 1 EA IV SCH (09:30)
[2020-04-19] MEDS: LR 1,000 ML IV SCH ×3 (09:44→22:23)
--- NOTE | 2020-04-19 10:26 | HPE ---
DATE OF ADMISSION: 04/18/2020 Jesusita is a 34-year-old, 2, para 0-1-0-0, at 39 weeks gestation, estimated date of confinement (EDC) of 04/25/2020, based on last menstrual period and confirmed by first trimester ultrasound. She presents to labor and delivery today for induction of labor due to history of intrauterine at 27 weeks in a prior , as well advanced maternal age, antiphospholipid syndrome. She denies any regular painful contractions, and no bleeding and leakage of fluid. She does report the fetus has been active. Her care was [facility] at [facility] in the first trimester. Her course complicated by advanced maternal age, history of intrauterine (IUFD) with abnormal quad screen, antiphospholipid syndrome. Her last dose of heparin was at 24-36 hours ago. OBSTETRICAL HISTORY: January 2018, 27 weeks gestation, 1 pound 2 ounce male, vaginal delivery due to stillborn fetus. OBSTETRIC LABS: O negative. Antibody screen negative. HIV negative. RPR negative. Hepatitis C antibody nonreactive. Hepatitis B surface antigen negative. Gonorrhea and Chlamydia negative. HIV negative. Urine culture and sensitivity negative. Rubella immune. Gestational diabetic screening normal and GBS is negative. PAST MEDICAL HISTORY: Esophageal reflux. Irritable bowel syndrome. Antiphospholipid syndrome. SURGERIES: None. FAMILY HISTORY: Lung cancer, bone cancer, suspected uterine cancer, prostate cancer, multiple sclerosis, rheumatoid arthritis, and lupus. SOCIAL HISTORY: The patient is . Her is at bedside and supportive. She is a nonsmoker. She denies alcohol or drug use. No reported history of sexually transmitted infections and she denies history of abuse physical, sexual, and emotional. ALLERGIES: PENICILLIN, which causes hives. CURRENT MEDICATIONS: - vitamin - heparin (with the last dose being 36 hours ago) OBJECTIVE: Temperature 97.7, pulse 104, respiration 18. Blood pressure is 118/70. She is alert and oriented times three. She is smiling and talkative. The heart rate is 140 with moderate variability, positive accelerations, negative decelerations. There is an occasional contraction. Her abdomen is gravid, cephalic presentation with an estimated weight of 7 pounds. Sterile Vaginal Exam: 1.5 cm dilated, 50% effaced, minus 3 station, very posterior. No show with the exam. ASSESSMENT: Intrauterine at 39 weeks, heart rate category 1. PLAN: Admit patient to labor and delivery. Out of bed ad javier. Regular diet at this time. Routine lab work. I plan to start misoprostol 50 mcg by mouth for cervical ripening. Will likely start IV Pitocin for labor induction. May consider assisted rupture of membranes, Gonzalez bulb insertion if necessary. I did review risks and benefits and alternatives with the patient. She and her 's questions have been answered. She has been verbally consented for emergency surgery and blood products if they are necessary. I do anticipate cervical ripening.
[2020-04-19] MEDS ORDERED: FENTANYL 2MCG/ML ROPIVACAINE 0.2% IN 0.9% NACL 100ML IVBAG As Ordered ONE (16:11)
[2020-04-19] MEDS ORDERED: REFRIGERATOR IV KEYS XX PRN (17:45)
[2020-04-19] MEDS ORDERED: EPIDURAL/PCA KEYS XX PRN (17:45)
[2020-04-19] MEDS ORDERED: NALOXONE INJ 0.4MG/1ML VIAL (J2310 PER 1MG) IV PRN (17:45)
[2020-04-19] MEDS ORDERED: ONDANSETRON 4MG/2ML VIAL IV PRN (17:45)
[2020-04-19] MEDS ORDERED: diphenhydrAMINE 50MG/ML VIAL (J1200) IV PRN (17:45)
[2020-04-19] MEDS ORDERED: EPIDURAL COMMENT XX SCH (17:45)
[2020-04-19] MEDS: FENTANYL/ROPIVACAINE/NACL BAG 100 ML EPIDURAL SCH (18:08)
[2020-04-19] MEDS: ePHEDrine SULFATE 25 MG/5 ML(5MG/ML) SYRINGE IV PRN ×2 (18:09→18:29)
[2020-04-19] MEDS: LACTATED RINGER'S 1000 ML IV PRN (18:12)
[2020-04-20] VITALS (30 sets, daily range): BP systolic 81–130; BP diastolic 47–80
[2020-04-20] MEDS: FENTANYL/ROPIVACAINE/NACL BAG 100 ML EPIDURAL SCH (01:33)
[2020-04-20] MEDS: LACTATED RINGER'S 1000 ML IV PRN ×2 (01:33→02:04)
[2020-04-20] MEDS ORDERED: LR 500 ML IV PRN (01:45)
[2020-04-20] MEDS: ePHEDrine SULFATE 25 MG/5 ML(5MG/ML) SYRINGE IV PRN ×2 (01:47→01:53)
[2020-04-20] MEDS ORDERED: ceFAZolin SOD 2 GM in IV 1 EA IV ONE (06:00)
[2020-04-20] MEDS ORDERED: AZITHROMYCIN INJ 500 MG, VIAL MATE ADAPTER 1 EACH in D5W 250 ML IV ONE (06:00)
[2020-04-20] MEDS ORDERED: BICITRA 30ML SOLN UDC PO ONE (06:00)
[2020-04-20] MEDS ORDERED: ceFAZolin 2 GM/D5W 50 ML IV BAG (J0690 PER 500MG) As Ordered ONE (06:01)
[2020-04-20] MEDS ORDERED: AZITHROMYCIN INJ 500MG VIAL (J0456 PER 500MG) As Ordered ONE (06:01)
[2020-04-20] MEDS ORDERED: BICITRA 30ML SOLN UDC As Ordered ONE (06:01)
[2020-04-20] MEDS ORDERED: OXYTOCIN DRIP 30 UNITS in IV 1 EA IV SCH (06:24)
[2020-04-20] MEDS ORDERED: LR 1,000 ML IV SCH (06:24)
[2020-04-20] MEDS ORDERED: PERCOCET PO (06:29)
[2020-04-20] MEDS ORDERED: IBUP80TA PO (06:29)
[2020-04-20] MEDS ORDERED: ONDANSETRON 4MG/2ML VIAL IV PRN ×3 (06:30→07:45)
[2020-04-20] MEDS ORDERED: PERCOCET 5MG/325MG TAB PO PRN ×2 (06:30)
[2020-04-20] MEDS ORDERED: MEASLES,MUMPS,RUBELLA VACCINE INJ (MMR-II) (90707) SC SCH (06:30)
[2020-04-20] MEDS ORDERED: RHOGAM 300 MCG (1500 IU) INJ (J2790) IM SCH (06:30)
[2020-04-20] MEDS ORDERED: MOM 30ML SUSPENSION UDC PO PRN (06:30)
[2020-04-20] MEDS ORDERED: LIDOCAINE 2% W/EPIN INJ 20ML **PRES FREE As Ordered ONE (07:00)
[2020-04-20] MEDS ORDERED: dexameTHASONE 4 MG/ML 1ML VIAL (J1100 PER 1MG) As Ordered ONE (07:00)
[2020-04-20] MEDS ORDERED: METOCLOPRAMIDE INJ 10MG/2ML VIAL (J2765 PER 1) As Ordered ONE (07:00)
[2020-04-20] MEDS ORDERED: PHENYLephrine HCL 500 MCG/5 ML (100MCG/ML) SYRINGE (J2370) As Ordered ONE (07:00)
[2020-04-20] MEDS ORDERED: ONDANSETRON 4MG/2ML VIAL As Ordered ONE (07:00)
[2020-04-20] MEDS ORDERED: OXYTOCIN INJ 10 UNITS/ML VIAL (J2590) As Ordered ONE (07:00)
[2020-04-20] MEDS ORDERED: ePHEDrine SULFATE 25 MG/5 ML(5MG/ML) SYRINGE As Ordered ONE (07:00)
[2020-04-20] MEDS ORDERED: MORPHINE PRES-FREE INJ 10 MG/10 ML VIAL (J2274) As Ordered ONE (07:06)
[2020-04-20] MEDS ORDERED: NALOXONE INJ 0.4MG/1ML VIAL (J2310 PER 1MG) IV PRN ×2 (07:08)
[2020-04-20] MEDS ORDERED: METOCLOPRAMIDE INJ 10MG/2ML VIAL (J2765 PER 1) IV PRN (07:08)
[2020-04-20] MEDS ORDERED: NALBUPHINE HCL 10 MG/ML AMP (J2300) IV PRN (07:08)
[2020-04-20] MEDS ORDERED: diphenhydrAMINE 50MG/ML VIAL (J1200) IV PRN ×2 (07:08→07:45)
--- NOTE | 2020-04-20 07:30 | ROOPDOC ---
[facility] Report Of Operation Report of Operation DATE OF PROCEDURE: 04/20/20 SURGEON: Hermila Gong M.D. PULLMAN CAR CLERK: Griselda Avina CNM ANESTHESIA: Epidural PREOPERATIVE DIAGNOSIS:. Arrest of descent POSTOPERATIVE DIAGNOSIS: Arrested descent ESTIMATED BLOOD LOSS: 700 mL URINE OUTPUT: 100 mL INTRAVENOUS FLUIDS:1500 ml lactated Ringer's solution PREOPERATIVE ANTIBIOTICS: 2 g of Ancef 500 mg azithromycin OPERATIVE FINDINGS: Liveborn female infant, Apgars 9 and 9. Weight was 7 lbs. 7 oz. or 3370 g SPECIMENS: Cord blood INDICATIONS FOR PROCEDURE: This patient presents for induction labor at 39 weeks . She progressed to complete, complete, -1 station. She pushed for 2 hours with no descent was counseled for a primary section DESCRIPTION OF PROCEDURE: After informed consent was obtained and written consent was reviewed. She was then placed in the supine position with a left lateral tilt. Gonzalez catheter was previously placed and set to gravity. Patient was then prepped and draped in the normal sterile fashion. A timeout operating room was performed identifying the patient, procedure be performed as well as drug allergies. Anesthesia was tested and deemed to be adequate. Pfannenstiel skin incision was made and this was carried down to the underlying rectus fascia. The fascia was then scored and this incision was extended bilaterally. The fascia was then dissected off the underlying rectus muscle superiorly and inferiorly. The rectus muscles were then in the midline. The peritoneum is then entered. Vesicouterine peritoneum was then tented and excised and a bladder flap was created. Mobius retractor was then placed. Next, a curvilinear incision was then made in the lower uterine segment. The head was brought to the level of the incision atraumatically and delivered along the shoulders and corpus. The cord was clamped x2. The was brought over to the warmer with a good cry. Placenta was drained and delivered grossly intact. The uterus was cleared of all clots and debris and the uterine incision was then closed in 2 layers using 0 Vicryl, first in a running locking fashion followed by second layer for imbrication. The abdomen suctioned. Surgical sites reinspected and noted be hemostatic. The retractor was then removed. The anterior peritoneum was then reapproximated with 3-0 Vicryl. The rectus muscles were reapproximated 3-0 Vicryl. The fascia was then closed using 0 Vicryl in a running nonlocking fashion. The subcutaneous tissues was then irrigated and suct ioned. Subcutaneous tissue was reapproximated using 3-0 Vicryl. Several subdermal stitch is placed using 3-0 Vicryl and the skin was closed with 4-0 Monocryl and subcuticular fashion. This incision was then cleaned and dried and was dressed. The patient was then taken to recovery in stable condition. All counts were correct. My surgical specialist Griselda Avina played in an essential role during the operation. They assisted with tissue identification retraction, delivery of the , as well as wound closure. HERMILA GONG MD. April 20, 2020 07:30
[2020-04-20] MEDS ORDERED: oxyCODONE 5MG TAB PO PRN (07:45)
[2020-04-20] MEDS ORDERED: MEPERIDINE INJ 25 MG/ML VIAL (J2175) IV PRN (07:45)
[2020-04-20] MEDS ORDERED: HYDROMORPHONE HCL 0.5 MG/ 0.5 ML SYRINGE (J1170 PER 1) IV PRN (07:45)
[2020-04-20] MEDS ORDERED: fentaNYL 100 MCG/2 ML INJECTION (J3010) IV PRN (07:45)
[2020-04-20] MEDS: PRENATAL VITAMINS CHEWABLE TABLET PO SCH (09:00)
[2020-04-20] MEDS: DOCUSATE SODIUM 100 MG CAP PO SCH ×2 (09:00→20:08)
[2020-04-20] MEDS: KETOROLAC 30 MG/ML 1ML VIAL IV SCH ×3 (09:01→20:07)
[2020-04-20] MEDS ORDERED: PROMETHAZINE INJ 25 MG/ML VIAL (J2550) IV PRN (18:30)
[2020-04-20] MEDS ORDERED: LR 500 ML IV SCH (18:30)
[2020-04-21 02:00] VITALS: BP 108/58
[2020-04-21] MEDS: KETOROLAC 30 MG/ML 1ML VIAL IV SCH (02:09)
[2020-04-21 05:59] VITALS: BP 109/57
[2020-04-21 07:54] LABS: HEMATOCRIT 22.9 % (36.0-47.0); HEMOGLOBIN 7.7 g/dl (12.0-15.5); MEAN CORPUSCULAR HEMOGLOBIN 30.2 pg (27.0-33.0); MEAN CORPUSCULAR HGB CONC 33.6 g/dl (32.0-36.5); MEAN CORPUSCULAR VOLUME 89.8 fl (80.0-96.0); PLATELET COUNT, AUTOMATED 260 10^3/uL (150-450); RED BLOOD COUNT 2.55 10^6/uL (4.00-5.40); WHITE BLOOD COUNT 14.5 10^3/uL (4.0-10.0)
[2020-04-21] MEDS: DOCUSATE SODIUM 100 MG CAP PO SCH ×2 (09:05→20:37)
[2020-04-21] MEDS: IBUPROFEN 800 MG TAB PO SCH ×2 (09:06→17:49)
[2020-04-21] MEDS: PRENATAL VITAMINS CHEWABLE TABLET PO SCH (09:06)
[2020-04-21 10:00] VITALS: BP 108/64
[2020-04-21 18:00] VITALS: BP 136/63
[2020-04-22] MEDS: IBUPROFEN 800 MG TAB PO SCH ×3 (01:43→17:54)
[2020-04-22 06:00] VITALS: BP 132/86
--- NOTE | 2020-04-22 06:58 | DS.PDOC ---
Discharge Summary General Date of Admission April 18, 2020 at 23:39 Date of Discharge 04/22/2020 Discharge Summary PROCEDURES PERFORMED DURING STAY: Primary section. ADMITTING DIAGNOSES: 1. Intrauterine @ 39 wks with history 27wk demise 2. AMA 3. Antiphospholipid syndrome DISCHARGE DIAGNOSES: 1. Primary section at term, arrest of descent. COMPLICATIONS/CHIEF COMPLAINT: Induction. HISTORY OF PRESENT ILLNESS: 34yo G2 now P1101 ZHEN 04/25/2020. Admitted on 04/18/2020 for induction of labor at 39 wks due to history of previous at 27wks, advanced maternal age and antiphospholipid syndrome. Primary section performed by Dr Gong 04/20/2020 for arrest of descent. HOSPITAL COURSE: Appropriate. Ambulating, tolerating regular diet. Adequate pain management. Voiding and passing flatus. DISCHARGE MEDICATIONS: Please see below. ALLERGIES: Please see below. PHYSICAL EXAMINATION ON DISCHARGE: VITAL SIGNS: Please see below. GENERAL: NAD HEENT: WNL NECK: Supple CARDIOVASCULAR EXAMINATION: HRR, normotensive RESPIRATORY EXAMINATION: Clear and unlabored ABDOMINAL EXAMINATION: Fundus firm. Dressing intact with scant old drainage EXTREMITIES: Equal strength and motion SKIN: Intact NEUROLOGICAL EXAMINATION: Grossly intact PSYCHIATRIC EXAMINATION: Appropriate LABORATORY DATA: Please see below. PROGNOSIS: Good ACTIVITY: As tolerated, pelvic rest DIET: As tolerate DISCHARGE PLAN: Home today DISPOSITION: Home. DISCHARGE INSTRUCTIONS: 1. Oral medications as directed. Pelvic rest. Call office with fever, nausea, vomiting, wound exudate or foul lochia. DISCHARGE CONDITION: Stable. Vital Signs/I&Os Vital Signs Date Time Temp Pulse Resp B/P (MAP) Pulse Ox O2 Delivery O2 Flow Rate FiO2 04/22/20 06:00 97.4 94 18 132/86 (101) 04/21/20 18:00 Room Air 04/21/20 10:00 97 Laboratory Data Labs 24H Laboratory Tests 2 04/21/20 07:29: Nucleated Red Blood Cells % (auto) 0.0 CBC/BMP Laboratory Tests 04/21/20 07:29 Discharge Medications Scheduled Aspirin (Aspirin) 81 Mg Tab.chew, 81 MG PO DAILY, (Reported) Cetirizine HCl (Cetirizine HCl) 10 Mg Tab, 10 MG PO DAILY for allergy symptoms, (Reported) Heparin Sodium,Porcine/Pf (Heparin 20 Units/2 ml (10/ml)) 10 Unit/1 Ml Syringe, 10,000 UNIT SQ DAILY, (Reported) Multivitamin (Multivitamins) 1 Each Capsule, 1 CAP PO DAILY, (Reported) Omeprazole (Omeprazole) 10 Mg Capsule.dr, 40 MG PO DAILY, (Reported) Scheduled PRN Ibuprofen (Ibuprofen) 800 Mg Tablet, 800 MG PO Q8HP PRN for PAIN Oxycodone/Acetaminophen (Oxycodone-Acetaminophen 5-325) 1 Each Tablet, 1-2 TAB PO Q6HP PRN for SEVERE PAIN (PS 8-10) Allergies Coded Allergies: Penicillins (Verified Allergy, Intermediate, rash/hives, 04/14/19) Jenny Romero CNM April 22, 2020 06:58
[2020-04-22 08:04] LABS: HEMATOCRIT 25.2 % (36.0-47.0); HEMOGLOBIN 8.2 g/dl (12.0-15.5); MEAN CORPUSCULAR HEMOGLOBIN 29.2 pg (27.0-33.0); MEAN CORPUSCULAR HGB CONC 32.5 g/dl (32.0-36.5); MEAN CORPUSCULAR VOLUME 89.7 fl (80.0-96.0); PLATELET COUNT, AUTOMATED 313 10^3/uL (150-450); RED BLOOD COUNT 2.81 10^6/uL (4.00-5.40); WHITE BLOOD COUNT 12.4 10^3/uL (4.0-10.0)
[2020-04-22] MEDS: DOCUSATE SODIUM 100 MG CAP PO SCH ×2 (09:30→20:21)
[2020-04-22] MEDS: PRENATAL VITAMINS CHEWABLE TABLET PO SCH (09:30)
[2020-04-22] MEDS ORDERED: ENOX40IN3 SC (09:31)
[2020-04-22 18:29] VITALS: BP 114/71
[2020-04-23] MEDS: IBUPROFEN 800 MG TAB PO SCH ×2 (03:07→09:02)
[2020-04-23 06:00] VITALS: BP 126/68
[2020-04-23] MEDS: PRENATAL VITAMINS CHEWABLE TABLET PO SCH (08:03)
[2020-04-23] MEDS: DOCUSATE SODIUM 100 MG CAP PO SCH (08:03)
[2020-04-23] MEDS ORDERED: DOCU100C16 PO (10:00)
== END 2020-04-23 12:00 | disposition home or self-care (01) | DRG 787 ==
LOC: M LDI 23:39 → M OBS 04-20 08:57
PROVIDERS: ADMIT Advanced Practice Midwife; ATTEND Obstetrics & Gynecology
PROC: 3E033VJ Introduction of Other Hormone into Peripheral Vein, Percutaneous Approach (ICD-10-PCS; 2020-04-18)
PROC: 10D00Z1 Extraction of Products of Conception, Low, Open Approach (ICD-10-PCS; principal; 2020-04-20 06:23)
DX: O99.12 Other diseases of the blood and blood-forming organs and certain disorders involving the immune mechanism complicating childbirth (principal); D68.61 Antiphospholipid syndrome; O99.62 Diseases of the digestive system complicating childbirth; K21.9 Gastro-esophageal reflux disease without esophagitis; K58.9 Irritable bowel syndrome, unspecified; Z88.0 Allergy status to penicillin; O64.0XX0 Obstructed labor due to incomplete rotation of fetal head, not applicable or unspecified; Z37.0 Single live birth; Z3A.39 39 weeks gestation of pregnancy; Z79.01 Long term (current) use of anticoagulants

== ENCOUNTER 2020-05-02 18:05 | Emergency (ER) | payer OTHER ==
[~2020-05-02] VITALS: Ht 157.5 cm; Wt 91.0 kg
[~2020-05-02 18:05] MED LIST changes: +DOCU100C16 PO; +ENOX40IN3 SC; +HEPA10IN10 SQ; +IBUP80TA PO; +PERCOCET PO
[2020-05-02 18:45] LABS: HEMATOCRIT 29.6 % (36.0-47.0); HEMOGLOBIN 9.7 g/dl (12.0-15.5); MEAN CORPUSCULAR HGB CONC 32.8 g/dl (32.0-36.5); MEAN CORPUSCULAR VOLUME 88.4 fl (80.0-96.0); PLATELET COUNT, AUTOMATED 368 10^3/uL (150-450); RED BLOOD COUNT 3.35 10^6/uL (4.00-5.40); WHITE BLOOD COUNT 15.1 10^3/uL (4.0-10.0)
[2020-05-02] MEDS ORDERED: FLUT15.820 NARES (18:58)
[2020-05-02 19:15] LABS: ALBUMIN 3.2 GM/DL (3.2-5.2); ALT/SGPT 31 U/L (12-78); BILIRUBIN,DIRECT < 0.1 MG/DL (0.0-0.2); BILIRUBIN,TOTAL 0.4 MG/DL (0.2-1.0); BLOOD UREA NITROGEN 9 MG/DL (7-18); CALCIUM LEVEL 8.8 MG/DL (8.5-10.1); CARBON DIOXIDE LEVEL 24 MEQ/L (21-32); CHLORIDE LEVEL 109 MEQ/L (98-107); CREATININE FOR GFR 0.83 MG/DL (0.55-1.30); GLOMERULAR FILTRATION RATE > 60.0 (>60); GLUCOSE, FASTING 82 MG/DL (70-100); POTASSIUM SERUM 4.6 MEQ/L (3.5-5.1); SODIUM LEVEL 141 MEQ/L (136-145); TOTAL PROTEIN 6.6 GM/DL (6.4-8.2)
[2020-05-02] MEDS ORDERED: NS 1,000 ML IV ONE (19:15)
[2020-05-02] MEDS ORDERED: MORPHINE 2 MG/ML 1ML VIAL (J2270) IV ONE (19:30)
[2020-05-02] MEDS ORDERED: ISOVUE-370 76% 100ML VIAL As Ordered ONE (19:41)
--- NOTE | 2020-05-02 20:16 | REPVR ---
PROCEDURE INFORMATION: Exam: CT Abdomen And Pelvis With Contrast Exam date and time: 05/02/2020 7:46 PM Age: 34 years old Clinical indication: Abdominal pain; Prior surgery; Surgery date: <1 month; Additional info: 2wk S/P with pain and fever R/O infection TECHNIQUE: Imaging protocol: Computed tomography of the abdomen and pelvis with intravenous contrast. Radiation optimization: All CT scans at this facility use at least one of these dose optimization techniques: automated exposure control; mA and/or kV adjustment per patient size (includes targeted exams where dose is matched to clinical indication); or iterative reconstruction. Contrast material: ISO 370; Contrast volume: 100 ml; Contrast route: IV; COMPARISON: CT ABD/PEL W/IV CONTRAST ONLY 01/25/2019 12:00 PM FINDINGS: Liver: 1.4 cm hypoattenuating lesion in the anterior segment of the right lobe of the liver stable in comparison to the prior study although not characterized on this single phase examination. Correlation with ultrasound suggested. Gallbladder and bile ducts: Normal. No calcified stones. No ductal dilation. Pancreas: Normal. No ductal dilation. Spleen: There is mild splenomegaly with a maximum span of 14 centimeters. No focal abnormalities demonstrated. Adrenals: Normal. No mass. Kidneys and ureters: Bilateral proximal hydroureteronephrosis likely related to ureteral compression by the enlarged uterus. No obstructing mass demonstrated. Stomach and bowel: Unremarkable. No obstruction. No mucosal thickening. Appendix: No evidence of appendicitis. Intraperitoneal space: See "Kidneys and ureters" finding. Vasculature: Unremarkable. No abdominal aortic aneurysm. Lymph nodes: Unremarkable. No enlarged lymph nodes. Bladder: Unremarkable as visualized. Reproductive: Enlarged uterus measures 13.5 x 6.2 x 7.5 cm with marked widening of the endometrial cavity consistent with recent status of this patient. Widened endometrial cavity likely related to the presence of blood products. No abnormal gas demonstrated within the uterus to suggest infection although this should be correlated clinically. Bones/joints: Unremarkable. No acute fracture. Soft tissues: Asymmetric soft tissue thickening demonstrated in the left breast in comparison to the right. Correlation with mammography suggested. Inflammatory changes in the lower anterior abdominal wall consistent with recent . IMPRESSION: 1. 1.4 cm hypoattenuating lesion in the anterior segment of the right lobe of the liver stable in comparison to the prior study although not characterized on this single phase examination. Correlation with ultrasound suggested. 2. There is mild splenomegaly with a maximum span of 14 centimeters. No focal abnormalities demonstrated. 3. Enlarged uterus measures 13.5 x 6.2 x 7.5 cm with marked widening of the endometrial cavity consistent with recent status of this patient. Widened endometrial cavity likely related to the presence of blood products. No abnormal gas demonstrated within the uterus to suggest infection although this should be correlated clinically. 4. Bilateral proximal hydroureteronephrosis likely related to ureteral compression by the enlarged uterus. No obstructing mass demonstrated. Electronically signed by: Joel Batres On 05/02/2020 20:16:25 PM
[2020-05-02 20:58] VITALS: BP 117/75
--- NOTE | 2020-05-04 13:39 | ED PDOC ---
Post-Departure Follow-Up dr collier faxed formal report of cta bd/p for fu Amrit Sims MD May 04, 2020 13:39
== END 2020-05-02 21:27 | disposition home or self-care (01) ==
LOC: M ED 18:05
DX: R10.9 Unspecified abdominal pain (principal); Z98.890 Other specified postprocedural states; Z88.0 Allergy status to penicillin; Z79.899 Other long term (current) drug therapy
CPT/HCPCS: 74177; 80048; 80076; 81001; 83605; 85027; 87040; 87086; 96361; 96374; 99284; J2270; Q9967

== ENCOUNTER → 2021-01-31 | Outpatient (CLI) | payer OTHER ==
[~2021-01-31] MED LIST changes: +FLUT15.820 NARES
[2021-01-31 08:33] LABS: BASO # 0.1 10^3/uL (0.0-0.2); BASO % 0.9 % (0.0-1.0); EOS # 0.1 10^3/uL (0.0-0.5); EOS % 1.6 % (0.0-3.0); HEMATOCRIT 40.2 % (36.0-47.0); LYMPH # 1.7 10^3/uL (1.5-5.0); MEAN CORPUSCULAR HEMOGLOBIN 29.1 pg (27.0-33.0); MEAN CORPUSCULAR HGB CONC 32.3 g/dl (32.0-36.5); MEAN CORPUSCULAR VOLUME 89.9 fl (80.0-96.0); MONO # 0.6 10^3/uL (0.0-0.8); MONO % 6.2 % (2.0-8.0); NEUTROPHILS # 6.4 10^3/uL (1.5-8.5); NEUTROPHILS % 71.7 % (36.0-66.0); PLATELET COUNT, AUTOMATED 376 10^3/uL (150-450); RED BLOOD COUNT 4.47 10^6/uL (4.00-5.40); WHITE BLOOD COUNT 8.9 10^3/uL (4.0-10.0)
[2021-01-31 09:02] LABS: ALBUMIN 3.9 GM/DL (3.2-5.2); ALT/SGPT 27 U/L (12-78); BILIRUBIN,TOTAL 0.4 MG/DL (0.2-1.0); BLOOD UREA NITROGEN 14 MG/DL (7-18); CALCIUM LEVEL 9.1 MG/DL (8.5-10.1); CARBON DIOXIDE LEVEL 27 MEQ/L (21-32); CHLORIDE LEVEL 105 MEQ/L (98-107); CHOLESTEROL LEVEL 209 MG/DL (<200); CHOLESTEROL RISK RATIO 5.225 (<5); CREATININE FOR GFR 0.87 MG/DL (0.55-1.30); FREE T4 0.88 NG/DL (0.76-1.46); GLOMERULAR FILTRATION RATE > 60.0 (>60); GLUCOSE, FASTING 92 MG/DL (70-100); HDL CHOLESTEROL 40 MG/DL (>40); LDL CHOLESTEROL 146 MG/DL (<100); NON-HDL-C 169 MG/DL; POTASSIUM SERUM 4.5 MEQ/L (3.5-5.1); RHEUMATOID FACTOR QUANT < 10.0 IU/ML (<15.0); SODIUM LEVEL 137 MEQ/L (136-145); TOTAL PROTEIN 7.2 GM/DL (6.4-8.2); TRIGLYCERIDES LEVEL 113 MG/DL (<150)
[2021-02-01 13:11] LABS: ANTINUCLEAR ANTIBODIES DIRECT Negative (Negative)
== END ==
LOC: M LAB 07:47
PROVIDERS: ATTEND Nurse Practitioner Family
DX: Z00.00 Encounter for general adult medical examination without abnormal findings (principal); G56.03 Carpal tunnel syndrome, bilateral upper limbs; R51.9 Headache, unspecified

== ENCOUNTER → 2023-01-27 | Outpatient (REF) | payer OTHER | LOC: M LAB REF 16:45 | PROVIDERS: ATTEND Nurse Practitioner Family | DX: Z01.419 Encounter for gynecological examination (general) (routine) without abnormal findings (principal); B37.31 Acute candidiasis of vulva and vagina | CPT/HCPCS: 87070; 87077; 87186; 87624; G0123 ==

== ENCOUNTER → 2023-02-06 | Outpatient (CLI) | payer OTHER | LOC: M RAD 12:45 | PROVIDERS: ATTEND Physician Assistant Medical | DX: J32.9 Chronic sinusitis, unspecified (principal) ==

== ENCOUNTER → 2023-09-20 | Outpatient (CLI) | payer OTHER ==
[~2023-09-20] MED LIST changes: -HEPA10IN10 SQ; +HEPA10IN27 SQ
== END ==
LOC: M RAD 08:38
PROVIDERS: ATTEND Nurse Practitioner Family
DX: R51.9 Headache, unspecified (principal)

== ENCOUNTER → 2024-12-24 | Outpatient (CLI) | payer OTHER ==
[2024-12-24 11:40] LABS: BASO # 0.1 10^3/uL (0.0-0.2); EOS # 0.1 10^3/uL (0.0-0.5); EOS % 1.7 % (0.0-3.0); HEMATOCRIT 39.4 % (36.0-47.0); HEMOGLOBIN 12.9 g/dl (12.0-15.5); LYMPH # 1.7 10^3/uL (1.5-5.0); LYMPH % 21.6 % (24.0-44.0); MEAN CORPUSCULAR HEMOGLOBIN 29.7 pg (27.0-33.0); MEAN CORPUSCULAR HGB CONC 32.7 g/dl (32.0-36.5); MEAN CORPUSCULAR VOLUME 90.6 fl (80.0-96.0); MONO # 0.5 10^3/uL (0.0-0.8); MONO % 6.8 % (2.0-8.0); NEUTROPHILS # 5.4 10^3/uL (1.5-8.5); NEUTROPHILS % 68.5 % (36.0-66.0); PLATELET COUNT, AUTOMATED 345 10^3/uL (150-450); RED BLOOD COUNT 4.35 10^6/uL (4.00-5.40); WHITE BLOOD COUNT 7.8 10^3/uL (4.0-10.0)
[2024-12-24 12:15] LABS: TOTAL 25(OH) VITAMIN D 36.1 NG/ML (20.0-100.0)
[2024-12-24 12:16] LABS: ALBUMIN 3.9 G/DL (3.2-5.2); ALKALINE PHOSPHATASE 82 U/L (35-104); ALT/SGPT 16 U/L (7.0-40); AST/SGOT 13 U/L (<34); BILIRUBIN,TOTAL 0.4 MG/DL (0.3-1.2); BLOOD UREA NITROGEN 13 MG/DL (9-23); CALCIUM LEVEL 9.7 MG/DL (8.5-10.1); CARBON DIOXIDE LEVEL 27 MMOL/L (20-31); CHLORIDE LEVEL 106 MMOL/L (98-107); CREATININE FOR GFR 0.78 MG/DL (0.55-1.30); FERRITIN 43.6 NG/ML (7.3-270.7); GLOMERULAR FILTRATION RATE > 60.0 (>58); GLUCOSE, FASTING 85 MG/DL (60-100); IRON (FE) 57 UG/DL (50-170); PERCENT SATURATION 19.5 % (13.2-45.0); POTASSIUM SERUM 4.6 MMOL/L (3.5-5.1); SODIUM LEVEL 140 MMOL/L (136-145); THYROID STIMULATING HORMONE 2.677 uIU/ML (0.55-4.78); TOTAL IRON BINDING CAPACITY 293 UG/DL (250-425); TOTAL PROTEIN 6.9 G/DL (5.7-8.2)
[2024-12-24 12:17] LABS: FREE T4 0.98 NG/DL (0.89-1.76)
[2024-12-24 12:57] LABS: MONO REFLEX EBV COMP NEGATIVE (NEGATIVE)
== END ==
LOC: M PLALAB 08:33
PROVIDERS: ATTEND Nurse Practitioner Family
DX: R42 Dizziness and giddiness (principal)

== ENCOUNTER → 2025-09-17 | Outpatient (CLI) | payer OTHER ==
[2025-09-17 10:13] LABS: BASO # 0.1 10^3/uL (0.0-0.2); BASO % 1.2 % (0.0-1.0); EOS # 0.2 10^3/uL (0.0-0.5); EOS % 1.7 % (0.0-3.0); LYMPH # 1.7 10^3/uL (1.5-5.0); LYMPH % 19.7 % (24.0-44.0); MONO # 0.8 10^3/uL (0.0-0.8); MONO % 8.7 % (2.0-8.0); NEUTROPHILS # 5.8 10^3/uL (1.5-8.5); NEUTROPHILS % 68.1 % (36.0-66.0); PLATELET COUNT, AUTOMATED 317 10^3/uL (150-450)
[2025-09-17 10:24] LABS: IRON (FE) 108 UG/DL (50-170); PERCENT SATURATION 34.8 % (13.2-45.0)
[2025-09-17 10:25] LABS: ALT/SGPT 25 U/L (7.0-40); AST/SGOT 28 U/L (<34); CALCIUM LEVEL 9.7 MG/DL (8.5-10.1); CARBON DIOXIDE LEVEL 24 MMOL/L (20-31); CHLORIDE LEVEL 107 MMOL/L (98-107); CHOLESTEROL LEVEL 196 MG/DL (<200); CHOLESTEROL RISK RATIO 4.05 (<5); CREATININE FOR GFR 0.81 MG/DL (0.55-1.30); GLOMERULAR FILTRATION RATE > 90.0 (>58); LDL CHOLESTEROL 132.1 MG/DL (<100); NON-HDL-C 147.7 MG/DL; POTASSIUM SERUM 4.5 MMOL/L (3.5-5.1); SODIUM LEVEL 141 MMOL/L (136-145); TRIGLYCERIDES LEVEL 78 MG/DL (<150)
[2025-09-17 10:26] LABS: FREE T4 0.74 NG/DL (0.89-1.76)
[2025-09-20 11:37] LABS: SSA SJOGRENS A <1.0 NEG AI (<1.0 NEG); SSB SJOGRENS B <1.0 NEG AI (<1.0 NEG)
[2025-09-22 11:42] LABS: CARBONIC ANHYDRASE VI IgA ABS 7.2 EU/ml (<20.0); CARBONIC ANHYDRASE VI IgG ABS 5.90 EU/ml (<20.0); CARBONIC ANHYDRASE VI IgM ABS 50.9 EU/ml (<20.0); PAROTID SPECIFIC PROTEIN IgA 9.8 EU/ml (<20.0); PAROTID SPECIFIC PROTEIN IgG 8.1 EU/ml (<20.0); PAROTID SPECIFIC PROTEIN IgM 75.9 EU/ml (<20.0); SALIVARY PROTEIN 1 IgA 1.9 EU/ml (<20.0); SALIVARY PROTEIN 1 IgG 13.8 EU/ml (<20.0); SALIVARY PROTEIN 1 IgM 92.3 EU/ml (<20.0)
== END ==
LOC: M LAB 08:40
PROVIDERS: ATTEND Nurse Practitioner Family
DX: L29.9 Pruritus, unspecified (principal); Z00.00 Encounter for general adult medical examination without abnormal findings

== ENCOUNTER → 2025-11-09 | Outpatient (REF) | payer OTHER | LOC: M LAB REF 17:14 | PROVIDERS: ATTEND Physician Assistant | DX: B34.9 Viral infection, unspecified (principal) ==

== ENCOUNTER → 2025-11-22 | Outpatient (CLI) | payer OTHER ==
[2025-11-22 17:45] LABS: VITAMIN B12 LEVEL 596 PG/ML (211-911)
== END ==
LOC: M PLALAB 13:58
PROVIDERS: ATTEND Psychiatry & Neurology Neurology
DX: E53.8 Deficiency of other specified B group vitamins (principal); E53.1 Pyridoxine deficiency; E51.9 Thiamine deficiency, unspecified; G60.9 Hereditary and idiopathic neuropathy, unspecified